=== PATIENT | female | born 1985 | race Caucasian/White ===

== ENCOUNTER 2019-01-22 10:50 | Emergency (ER) | payer OTHER ==
[~2019-01-22] VITALS: Ht 167.6 cm; Wt 76.7 kg
--- OUTSIDE RECORDS SUMMARY | 2019-01-22 10:57 | XMS REPORT | Clinical Summary ---
Author Author [facility] Organization [facility] Address Unknown Phone Unavailable Care Team Providers Care Certified Orthotist Practice Manager Name Role Phone Asked, No Pcp PCP Unavailable Allergies No Known Allergies Medications End Date Status Medication Sig Dispensed Refills Start Date Active betamethasone valerate APPLY TO 2 0.12 % foam AFFECTED AREA 8 TWICE A DAY FOR 30 DAYS. Active Problems No known active problems Encounters Care Team Description Date Type Specialty Liz Hurt MD Encounter for removal of intrauterine contraceptive device (IUD) (Primary Dx) 03/09/2018 Procedure visit Obstetrics and Gynecology Liz Hurt MD Pap smear, low-risk (Primary Dx); examination or test, negative result; Wellness examination 03/05/2018 Office Visit Obstetrics and Gynecology after 01/21/2018 Family History Medical History Relation Name Comments Thyroid disease Maternal Grandmother Thyroid disease Mother Relation Name Status Comments Maternal Grandmother Mother Social History Date Tobacco Use Types Packs/Day Years Used Never Smoker Smokeless Tobacco: Never Used Drinks/Week oz/Week Comments Alcohol Use social Yes Sex Assigned at Date Recorded Not on file Industry Job Start Date Occupation Not on file Not on file Not on file Travel End Travel History Travel Start No recent travel history available. Last Filed Vital Signs Reading Time Taken Comments Vital Sign 118/73 03/09/2018 10:26 AM CDT Blood Pressure 77 03/09/2018 10:26 AM CDT Pulse - - Temperature - - Respiratory Rate - - Oxygen Saturation - - Inhaled Oxygen Concentration 72.6 kg (160 lb) 03/09/2018 10:26 AM CDT Weight 167.6 cm (5' 6") 03/09/2018 10:26 AM CDT Height 25.82 03/09/2018 10:26 AM CDT Body Mass Index Plan of Treatment Health Maintenance Due Date Last Done Comments CERVICAL CANCER SCREENING 11/07/2007 INFLUENZA VACCINE 12/13/2018 Procedures Comments Procedure Name Priority Date/Time Associated Diagnosis WI REMOVE INTRAUTERINE Routine 03/09/2018 Encounter for removal of DEVICE 10:00 AM CDT intrauterine contraceptive device (IUD) POC , URINE Routine 03/05/2018 examination or 9:48 AM CDT test, negative result HPV MRNA E6/E7 REFLEX Routine 03/05/2018 HPV 16, 18/45 (REFLEX) 9:33 AM CDT THINPREP TIS PAP Routine 03/05/2018 9:33 AM CDT after 01/21/2018 Results * IUD removal/insertion (03/09/2018 10:00 AM CDT) Narrative Performed At Liz Hurt MD 03/09/2018 10:49 AM IUD removal/insertion Date/Time: 03/09/2018 10:45 AM Performed by: LIZ HURT Authorized by: LIZ HURT Consent: Consent obtained:Verbal and written Consent given by:Patient Procedure risks and benefits discussed: yes Patient questions answered: yes Patient agrees, verbalizes understanding, and wants to proceed: yes Educational handouts given: yes Instructions and paperwork completed: yes Procedure: Procedure type: IUD removal Procedure Details: Ultrasound Guided? no Strings visible: no Cervix cleaned and prepped: yes Removed with:Long Kina Removed with no complications: yes Other reason for removal:Patient is currently not sexually active and is single and wants the IUD removed Post-procedure: Patient tolerated procedure well: yes Comments: Cervix was prepped with Betadine and a long Kina was placed inside the cervix and the IUD string was grasped and easily removed with one try.No bleeding noted * POC , urine (03/05/2018 9:48 AM CDT) test Negative urine, POC QC done No Specimen Urine * HPV mRNA E6/E7 REFLEX HPV 16, 18/45 (03/05/2018 9:33 AM CDT) HPV mRNA e6/e7 Not Detected Not Detected [facility] Comment: DIAGNOSTICS This test was performed using JACKSON the APTIMA HPV Assay ([employer] This assay detects E6/E7 viral messenger RNA (mRNA) from 14 high-risk HPV types (16,18,31,33,35,39,45,51,52,56 ,58,59,66,68). The analytical performance characteristics of this assay have been determined by [facility]. The modifications have not been cleared or approved by the FDA. This assay has been validated pursuant to the CLIA regulations and is used for clinical purposes. Specimen Resulting Agency Comment Performing Organization Information: Site ID: [id number] Name: [facility] Address: [address] [place] [id number] Director: Dayanara Perez Performing Organization Address [facility] [place] [address] * THINPREP TIS PAP (03/05/2018 9:33 AM CDT) Clinical None given [facility] information DIAGNOSTICS [employer] Date of last NONE GIVEN [facility] menstrual [facility]AGNOSTICS period [employer] Prev. pap: NONE GIVEN [facility] [employer] Prev. bx: NONE GIVEN [facility] [employer] Source Comment: Cervix, Endocervix [employer] DIAGNOSTICS [employer] Statement of Comment: [facility] adequacy Satisfactory for evaluation. DIAGNOSTICS Endocervical/transformation JACKSON zone component present. Age and/or menstrual status not provided Interpretation/ Comment: Negative for [facility] result: intraepithelial lesion or DIAGNOSTICS malignancy. [employer] Comment Comment: [facility] This Pap test has been DIAGNOSTICS evaluated with computer JACKSON assisted technology. [employer] Comment: [facility] t AMT, CT(ASCP) DIAGNOSTICS CT screening location: [place] [id number] Comment Comment: [facility] EXPLANATORY NOTE: DIAGNOSTICS The Pap is a screening test [employer] for cervical cancer. It is not a diagnostic test and is subject to false negative and false positive results. It is most reliable when a satisfactory sample, regularly obtained, is submitted with relevant clinical findings and history, and when the Pap result is evaluated along with historic and current clinical information. Specimen Resulting Agency Comment Performing Organization Information: Site ID: [id number] Name: [facility] Address: [address] [place] [id number] Director: Dayanara Perez Performing Organization Address [facility] [place] [address] after 01/21/2018 Insurance Type Payer Benefit Subscriber ID Effective Phone Address Plan / Dates [employer] xxxxxxxxxxx 2017-P [employer] [facility] Advance Directives For more information, please contact: [phone] Patient Private Security Guard Explanation Type Date Recorded Advance Directives, Living Will and Medical Power of Food Vendor
--- NOTE | 2019-01-22 11:06 | NUR ---
SEEN BY DR. ALBARRAN IN TRIAGE
[2019-01-22] MEDS ORDERED: KETOROLAC TROMETHAMINE 30 MG/ML VIAL IV STA (11:09)
[2019-01-22] MEDS ORDERED: ONDANSETRON HCL INJ 2MG/ML 2ML 2 MG/ML VIAL IV STA (11:09)
[2019-01-22] MEDS ORDERED: SODIUM CHLORIDE 0.9% 1000ML 1,000 ML IV STA (11:09)
[2019-01-22 11:44] LABS: BASOPHILS % 0.6 % (0.0-1.0); EOSINOPHILS % 0.6 % (0.0-6.0); HEMATOCRIT 37.8 % (34.2-44.1); HEMOGLOBIN 13.2 g/dL (12.0-16.0); MEAN CORPUSCULAR HEMOGLOBIN 30.4 pg (28-32); MEAN CORPUSCULAR HGB CONC 34.9 g/dL (31-35); MEAN CORPUSCULAR VOLUME 87.1 fL (81-99); MONOCYTES # (AUTO) 0.8 (0.2-0.8); MONOCYTES % 14.8 % (4.4-11.3); NEUTROPHILS # (AUTO) 3.3 (2.1-6.9); NEUTROPHILS % 63.6 % (38.7-80.0); PLATELET COUNT 189 x10e3/uL (140-360); RED BLOOD COUNT 4.34 x10e6/uL (3.6-5.1); RED CELL DISTRIBUTION WIDTH 11.9 % (11.7-14.4)
[2019-01-22 11:46] LABS: BILIRUBIN,URINE NEGATIVE (NEGATIVE); CLARITY,URINE CLEAR (CLEAR); COLOR,URINE YELLOW (YELLOW); KETONES,URINE NEGATIVE (NEGATIVE); LEUKOCYTE ESTERASE ,URINE NEGATIVE (NEGATIVE); NITRITE,URINE NEGATIVE (NEGATIVE); PROTEIN,URINE DIPSTICK NEGATIVE (NEGATIVE); URINE UROBILINOGEN 0.2 mg/dL (0.2 - 1)
[2019-01-22 11:50] LABS: PREGNANCY TEST, URINE NEGATIVE (NEGATIVE)
[2019-01-22 12:00] LABS: BACTERIA,URINE FEW /HPF; EPITHELIAL CELLS,URINE FEW /LPF; RBC,URINE 21-50 /HPF (0-5); WBC,URINE (MAN) 21-50 /HPF (0-5)
[2019-01-22 12:07] LABS: ALANINE AMINOTRANSFERASE 19 IU/L (0-55); ALBUMIN 4.3 g/dL (3.5-5.0); ALBUMIN/GLOBULIN RATIO 1.4 (0.8-2.0); ALKALINE PHOSPHATASE 72 IU/L (40-150); ANION GAP 14.7 mmol/L (8-16); BLOOD UREA NITROGEN 5 mg/dL (7-26); BUN/CREATININE RATIO 6 (6-25); CALCIUM 9.7 mg/dL (8.4-10.2); CARBON DIOXIDE 24 mmol/L (22-29); CHLORIDE 105 mmol/L (98-107); CREATININE, SERUM 0.84 mg/dL (0.57-1.11); EST GLOMERULAR FILTRATION RATE > 60 ML/MIN (60-); GLUCOSE 87 mg/dL (74-118); POTASSIUM 3.7 mmol/L (3.5-5.1); SODIUM 140 mmol/L (136-145)
--- NOTE | 2019-01-22 12:43 | Diagnostic Imaging Report ---
Examination: CT BRAIN WO CONTRAST History:Migraines. Frontal headaches. Comparison studies:None Technique: Axial images were obtained from the skull base to the vertex. Coronal and sagittal images reconstructed from the axial data. Dose modulation, iterative reconstruction, and/or weight based adjustment of the mA/kV was utilized to reduce the radiation dose to as low as reasonably achievable. Intravenous contrast: None Findings: Scalp: No abnormalities. Bones: No fractures, blastic or lytic lesions. Brain sulci: Appropriate for age. Ventricles: Normal in size and configuration. No hydrocephalus. Extra-axial space: No abnormalities. Parenchyma: No abnormal densities. No masses, hemorrhage, or acute or chronic cortical based vascular insults.. Sellar/suprasellar region: No abnormalities. Craniocervical junction: Patent foramen magnum. No Chiari one malformation. Incidental findings: None. Impression: Normal noncontrast head CT. Signed by: Dr. Siria Sosa M.D. on 01/22/2019 12:40 PM
[2019-01-22 13:49] VITALS: BP 107/67
== END 2019-01-22 13:51 | disposition home or self-care (01) ==
LOC: ER 10:55
DX: G44.211 Episodic tension-type headache, intractable (principal); L40.9 Psoriasis, unspecified
CPT/HCPCS: 36415; 70450; 80053; 81001; 81025; 85025; 99284; J1885; J2405; J7030